=== PATIENT | female | born 1985 | race Caucasian/White ===

== ENCOUNTER → 2017-12-23 15:19 | Outpatient (CLI) | payer MEDICAID, SELFPAY ==
[2017-12-23 15:54] LABS: Abs Immature Grans 0.01 k/cumm (0.0-0.09); Absolute Basophil Count 0.01 k/cumm (0.0-0.2); Absolute Eosinophil Count 0.04 k/cumm (0.0-0.7); Absolute Monocyte Count 0.46 k/cumm (0.11-0.7); Absolute Neutrophil Count 4.96 k/cumm (1.2-6.7); Basophils % 0.2; Eosinophils % 0.6; HCT 35.7 % (36.0-46.0); HGB 12.2 g/dL (12.0-15.5); Immature Grans % 0.2; Lymphocytes % 16.7; Mean Corp. HGB Concentration 34.2 g/dL (32.0-36.0); Mean Corpuscular Hemoglobin 31.4 pg (27.0-33.0); Mean Platelet Volume 11.6 fL (8.0-11.0); Neutrophils % 75.3; Platelet Count 218 x1000/uL (130-400); RBC 3.88 m/cumm (4.00-5.20); RBC Distribution Width 12.1 % (11.7-14.6); White Blood Cell Count 6.58 k/cumm (4.4-10.8)
[2017-12-23 16:28] LABS: TSH (W/Ref FT4) 0.94 uIU/mL (0.358-3.74)
[2017-12-23 17:41] LABS: Tricyclic Antidepressants Negative (Negative)
[2017-12-23 17:44] LABS: *AMPHETAMINES SCREEN URINE Negative (Negative); *BARBITURATES SCREEN URINE Negative (Negative); *BENZODIAZEPINES SCREEN URINE Negative (Negative); Cannabinoids THC Negative (Negative); Cocaine Screen,Urine Negative (Negative); METHADONE URINE SCREEN Negative (Negative); OPIATES URINE SCREEN Negative (Negative)
[2017-12-24 09:52] LABS: Hepatitis C Ab w Rflx HCV PCR Negative (NEGAT)
[2017-12-24 10:06] LABS: HIV-1/2 Ag & Ab Screen Negative (NEGAT)
[2017-12-24 10:24] LABS: Hepatitis B Surface Ag Negative (NEGAT)
[2017-12-24 13:37] LABS: Rubella IgG Ab (UVM) Positive; Syphilis Serology (RPR) Negative (Negative)
[2017-12-27 15:05] LABS: Chlamydia Result Negative; GC Result Negative; Specimen Description CERVIX
[2017-12-30 20:43] LABS: Buprenorphine Negative; Norbuprenorphine Negative
== END ==
PROVIDERS: PCP Family Medicine; Visit Provider Midwife
DX: Z34.91 Encounter for supervision of normal pregnancy, unspecified, first trimester (principal); Z11.3 Encounter for screening for infections with a predominantly sexual mode of transmission
CPT/HCPCS: 36415; 80055; 80307; 86850; 86900; 86901; 87077; 87491; 87591; 84443; 87086

== ENCOUNTER 2017-12-29 00:52 | Outpatient (CLI) | payer MEDICAID, SELFPAY ==
--- NOTE | 2017-12-29 12:44 | DI.US_ITS ---
SYMPTOMS/DIAGNOSIS: DATING, POSITIVE TEST, Z32.01 OBSTETRICAL ULTRASOUND: Many abnormalities cannot be diagnosed. A normal exam does not exclude a congenital anomaly. Radiology No. [id number] LMP: 10/08/17? Exam Date: 12/29/2017 [facility] wks days on EDC ([facility]) 07/15/17 Confirmed: HISTORY: ---- PREDICTED GESTATIONAL AGE NUMBER 11+5 weeks with a range of 10+5 weeks to 12+5 weeks. 1 Determined by___1STUS___LMP___HISTORY PLACENTA PRESENTATION Grade Cephalic___ Anterior___Posterior___ Breech____ Right Left Transverse(head right___ Fundal___Low-lying___Previa___ Transverse(head left___ Varying BIOMETRY AMNIOTIC FLUID BPD: mm weeks Normal HC: mm weeks Oligo Polyhydramnios AC: mm weeks FL: mm weeks AMNIOTIC FLUID INDEX >26 WK CRL: 40 mm 10+6 weeks Cisterna Magna: mm CI: RUQ: LUQ Cerebellum: cm EFW: grams Percentile RLQ: LLQ Total: cms Composite AGE= 10+6 wks EDC by US: 07/21/17 BIOPHYSICAL PROFILE ANATOMY IDENTIFIED SCORE 0/2 Heart: 4-Chamber___Rate:BPM 171 LVOT: RVOT: Amniotic Fluid(>2cms)____ Stomach: Kidneys: Respirations (>30 secs) Bladder: Post. Fossa: Body Flex/Extension 3 vessel cord: Ventricles: cord insertion: Lips:____ Extremity Flex/Extension spinal morphology: Nose: Total Score= Palate: NS=not seen COMMENTS: Routine examination was performed. There is a single living intrauterine gestation. Estimated sonographic age is 10 weeks 6 days based on crown-rump length. heart rate is 171 beats per minute. The yolk sac is visualized. Both ovaries were visualized. There is normal blood flow. They are grossly unremarkable. IMPRESSION: Single living intrauterine gestation. Estimated sonographic age is 10 weeks 6 days.
== END 2017-12-29 01:12 ==
PROVIDERS: PCP Family Medicine; Visit Provider Nurse Practitioner Women's Health
DX: Z32.01 Encounter for pregnancy test, result positive (principal); Z34.81 Encounter for supervision of other normal pregnancy, first trimester
CPT/HCPCS: 76801; 76817

== ENCOUNTER 2018-02-14 00:29 | Outpatient (CLI) | payer MEDICAID, SELFPAY ==
--- NOTE | 2018-02-14 14:48 | DI.US_ITS ---
Many abnormalities cannot be diagnosed. A normal exam does not exclude a congenital anomaly. Radiology No. LMP: 10/08/17 Exam Date: 02/14/18 [facility] 11 wks 5 days on 12/29/2017 EDC ([facility]) 07/08/18 ? Confirmed: HISTORY: SURVEY ---- PREDICTED GESTATIONAL AGE NUMBER 18.2 weeks with a range of 17.2 week to 19.2 weeks. 1 Determined by___1STUS___LMP___HISTORY Info. pertaining to fetus # PLACENTA PRESENTATION Grade 0-1 Cephalic___ Anterior__X_Posterior___ Breech____ Right___X__ Left Transverse(head right___ Fundal___Low-lying___Previa___ Transverse(head left___ Varying___X___ BIOMETRY AMNIOTIC FLUID BPD: 35 mm 16.5 weeks Normal HC: 140 mm 17.3 weeks AC: 115 mm 17.2 weeks FL: 25 mm 17.3 weeks AMNIOTIC FLUID INDEX >26 WK CRL: mm weeks Cisterna Magna: 4 mm CI: 0.71 RUQ: LUQ Cerebellum: 1.7 cm EFW: 190 grams Percentile RLQ: LLQ Total: cms Composite AGE= 17.2 wks EDC by US____07/23/18 BIOPHYSICAL PROFILE ANATOMY IDENTIFIED SCORE 0/2 Heart: 4-Chamber_X__Rate:BPM_143____ LVOT: X___ RVOT: X___ Amniotic Fluid(>2cms)____ Stomach: X__ Kidneys: X__ Respirations (>30 secs) Bladder: X_ Post. Fossa:___X Body Flex/Extension 3 vessel cord:___X____Ventricles:____X cord insertion:____X_ Lips:____X Extremity Flex/Extension spinal morphology:___X Nose:X Total Score= Palate: X__ NS=not seen Comparison is made with 12/29/17. There is a single intrauterine gestation in variable position. The placenta is anterior. The biometric measurements correspond to 17 weeks 2 days which is at the lower range of normal for predicted gestational age. No abnormalities are seen. The amount of amniotic fluid appears normal. IMPRESSION: survey is within normal limits.
== END 2018-02-14 00:49 ==
PROVIDERS: PCP Family Medicine; Visit Provider Advanced Practice Midwife
DX: Z34.92 Encounter for supervision of normal pregnancy, unspecified, second trimester (principal)
CPT/HCPCS: 76805

== ENCOUNTER 2018-05-02 11:18 | Outpatient (CLI) | payer MEDICAID, SELFPAY | END 2018-05-02 11:38 | PROVIDERS: PCP Family Medicine; Visit Provider Nurse Practitioner | DX: O76 Abnormality in fetal heart rate and rhythm complicating labor and delivery (principal) | CPT/HCPCS: 59025 ==

== ENCOUNTER 2018-05-02 12:01 | Outpatient (CLI) | payer MEDICAID, SELFPAY ==
[2018-05-02 12:44] LABS: HCT 30.6 % (36.0-46.0); HGB 10.2 g/dL (12.0-15.5); Mean Corp. HGB Concentration 33.3 g/dL (32.0-36.0); Mean Corpuscular Hemoglobin 31.5 pg (27.0-33.0); Mean Corpuscular Volume 94.4 fL (80-95); Mean Platelet Volume 11.1 fL (8.0-11.0); Platelet Count 189 x1000/uL (130-400); RBC 3.24 m/cumm (4.00-5.20); RBC Distribution Width 12.2 % (11.7-14.6); White Blood Cell Count 7.53 k/cumm (4.4-10.8)
[2018-05-02 13:32] LABS: Glucose,1 Hr (Glucola) 157 mg/dL (80-140)
== END 2018-05-02 12:21 ==
PROVIDERS: Nurse Practitioner; PCP Family Medicine; Visit Provider Advanced Practice Midwife
DX: Z34.93 Encounter for supervision of normal pregnancy, unspecified, third trimester (principal)
CPT/HCPCS: 36415; 82950; 85027; 86850; 86870

== ENCOUNTER 2018-05-05 10:27 | Outpatient (CLI) | payer MEDICAID, SELFPAY ==
[2018-05-05 12:24] LABS: Glucose 1 Hour 161 mg/dL
[2018-05-05 14:37] LABS: Glucose 3 Hour 102 mg/dL
== END 2018-05-05 10:47 ==
PROVIDERS: PCP Family Medicine; Visit Provider Nurse Practitioner
DX: R73.09 Other abnormal glucose (principal); Z34.93 Encounter for supervision of normal pregnancy, unspecified, third trimester; O36.0930 Maternal care for other rhesus isoimmunization, third trimester, not applicable or unspecified
CPT/HCPCS: 36410; 36415; 82951; 86870; 86880; 86886; 86900; 86976; 86977; 86978

== ENCOUNTER 2018-06-20 14:52 | Outpatient (REF) | payer MEDICAID, SELFPAY | END 2018-06-20 15:12 | LOC: LBN 14:52 | PROVIDERS: PCP Family Medicine; Visit Provider Advanced Practice Midwife | DX: Z34.93 Encounter for supervision of normal pregnancy, unspecified, third trimester (principal); Z36.85 Encounter for antenatal screening for Streptococcus B | CPT/HCPCS: 87081 ==

== ENCOUNTER 2018-07-22 07:24 | Inpatient (IN) | payer MEDICAID, SELFPAY ==
[2018-07-22 11:53] LABS: HCT 32.5 % (36.0-46.0); HGB 10.8 g/dL (12.0-15.5); Mean Corp. HGB Concentration 33.2 g/dL (32.0-36.0); Mean Corpuscular Hemoglobin 30.7 pg (27.0-33.0); Mean Corpuscular Volume 92.3 fL (80-95); Mean Platelet Volume 12.7 fL (8.0-11.0); Platelet Count 148 x1000/uL (130-400); RBC 3.52 m/cumm (4.00-5.20); RBC Distribution Width 13.7 % (11.7-14.6); White Blood Cell Count 5.93 k/cumm (4.4-10.8)
[2018-07-22 11:59] LABS: ROM Plus Positive
[2018-07-22] MEDS: Normal Saline Flush 10 ML SYR IVP (13:28)
[2018-07-22] MEDS: Lactated Ringers 1,000 ML 125 ML IV (13:29)
[2018-07-22] MEDS: Hamamelis Leaf/Glycerin 100 EACH BOX PR (22:22)
[2018-07-23 07:20] LABS: HCT 31.1 % (36.0-46.0); HGB 10.2 g/dL (12.0-15.5); Mean Corp. HGB Concentration 32.8 g/dL (32.0-36.0); Mean Corpuscular Hemoglobin 30.3 pg (27.0-33.0); Mean Corpuscular Volume 92.3 fL (80-95); Mean Platelet Volume 12.3 fL (8.0-11.0); Platelet Count 146 x1000/uL (130-400); RBC 3.37 m/cumm (4.00-5.20); RBC Distribution Width 13.7 % (11.7-14.6); White Blood Cell Count 8.39 k/cumm (4.4-10.8)
== END 2018-07-24 12:35 | disposition home or self-care (01) | DRG 807 ==
PROVIDERS: Admitting Provider Advanced Practice Midwife; PCP Family Medicine; Visit Provider Advanced Practice Midwife
DX: O48.0 Post-term pregnancy (principal); Z37.0 Single live birth; O42.02 Full-term premature rupture of membranes, onset of labor within 24 hours of rupture; Z3A.41 41 weeks gestation of pregnancy; O99.02 Anemia complicating childbirth; D64.9 Anemia, unspecified; O75.89 Other specified complications of labor and delivery; Z67.10 Type A blood, Rh positive
CPT/HCPCS: 36415; 84112; 85027; 86850; 86900; 86901; 86920; 86870; 86902; J3490

== ENCOUNTER 2020-02-13 11:21 | Outpatient (CLI) | payer MEDICAID, SELFPAY ==
[2020-02-13 11:45] LABS: Abs Immature Grans 0.01 10^3/uL (0.0-0.06); Absolute Basophil Count 0.02 10^3/uL (0.0-0.2); Absolute Eosinophil Count 0.03 10^3/uL (0.0-0.7); Absolute Lymphocyte Count 1.14 10^3/uL (1.2-3.4); Absolute Neutrophil Count 4.78 10^3/uL (1.2-6.7); Basophils % 0.3; Eosinophils % 0.5; HCT 33.5 % (36.0-46.0); HGB 11.5 g/dL (11.2-15.7); Immature Grans % 0.2; Lymphocytes % 17.9; MCH 31.9 pg (27.0-33.0); MCHC 34.3 % (32.0-36.0); MCV 92.8 fL (80-95); MPV 11.1 fL (8.0-11.0); Monocytes % 6.3; Neutrophils % 74.8; Nucleated RBC 0 %; Platelet Count 212 10^3/uL (130-400); RBC 3.61 10^6/uL (3.93-5.22); RDW 12.9 % (11.7-14.6); RDW-SD 43.7 fL; WBC 6.38 10^3/uL (4.4-10.8)
[2020-02-14 10:21] LABS: Varicella IgG Antibody Positive (See Note)
[2020-02-14 10:23] LABS: Rubella IgG Ab (UVM) Positive (See Note)
[2020-02-14 11:23] LABS: Hepatitis B Surface Ag Negative (Negative)
[2020-02-14 11:58] LABS: HIV-1/2 Ag & Ab Screen Negative (Negative)
[2020-02-14 12:13] LABS: Hepatitis C Ab w Rflx HCV PCR Negative (Negative)
[2020-02-14 15:09] LABS: Syphilis Total Ab w/Reflex Nonreactive (Nonreactive)
== END 2020-02-13 11:41 ==
PROVIDERS: PCP Nurse Practitioner Family; Visit Provider Advanced Practice Midwife
DX: Z34.91 Encounter for supervision of normal pregnancy, unspecified, first trimester (principal)
CPT/HCPCS: 36415; 86787; 86803; 86850; 86900; 86901; 87340; 87389; 85025; 86762; 86780; 86870

== ENCOUNTER 2020-02-13 12:04 | Outpatient (REF) | payer MEDICAID, SELFPAY ==
--- NOTE | 2020-02-13 11:00 | PAPFT_PTH ---
PATIENT: Anne Husain LOC: [facility] U#:[id number] AGE/SX: 34/F ROOM: RE02/13/[address]: Gail Bullock : 1985 BED: DIS: 02/13/2020 SPEC #: [id number] RECD: 02/13/20 12:51 STATUS: DAVID REQ #: [id number] BRIANNA: 02/13/20 11:[address]: Gail Bullock [facility] Cytology RECD BY: Sommer Price ENTERED: 02/13/20 12:52 SP TYPE: PAPFT OTHR DR: Macie Godinez, MARKER MACHINE Tissues: 1 - CX/ENDOCX FOR PAP SMEARS Procedures: PAP THIN PREP/[facility] Screening HPV DNA PROBE Comments: [id number]
[2020-02-13 14:07] LABS: *AMPHETAMINES SCREEN URINE Negative (Negative); *BARBITURATES SCREEN URINE Negative (Negative); *BENZODIAZEPINES SCREEN URINE Negative (Negative); Cannabinoids THC Negative (Negative); Cocaine Screen,Urine Negative (Negative); METHADONE URINE SCREEN Negative (Negative); OPIATES URINE SCREEN Negative (Negative)
[2020-02-13 14:14] LABS: Tricyclic Antidepressants Negative (Negative)
[2020-02-14 15:37] LABS: Chlamydia Result Negative (Negative); GC Result Negative (Negative)
[2020-02-17 12:19] LABS: Buprenorphine Negative; Norbuprenorphine Negative
== END 2020-02-13 12:24 ==
LOC: LBN 12:04
PROVIDERS: PCP Nurse Practitioner Family; Visit Provider Advanced Practice Midwife
DX: Z34.91 Encounter for supervision of normal pregnancy, unspecified, first trimester (principal); N89.8 Other specified noninflammatory disorders of vagina; Z11.3 Encounter for screening for infections with a predominantly sexual mode of transmission; Z12.4 Encounter for screening for malignant neoplasm of cervix; Z11.51 Encounter for screening for human papillomavirus (HPV)
CPT/HCPCS: 80307; 87491; 87591; 88142; 87086; 87480; 87510; 87624; 87660

== ENCOUNTER 2020-03-12 09:28 | Outpatient (CLI) | payer MEDICAID, SELFPAY ==
--- NOTE | 2020-03-12 07:00 | DI.US_ITS ---
EXAM: US OB 2-3 TRIMESTER CLINICAL HISTORY: 18 wk anatomy survey,Z34.90. TECHNIQUE: Transabdominal obstetrical ultrasound performed. COMPARISON: US US OB 2-3 trimester from 02/14/2018 FINDINGS: Transabdominal obstetrical ultrasound performed. FINDINGS: Number of fetuses: One. position: Varied positioning. heart rate: 150 bpm. Placental location: Posterior. No evidence of previa. BIOMETRIC DATA: Composite Age: 18 weeks 1 day EDC: 08/12/2020 Heart Rate: 150BPM Amniotic fluid: Amount of fluid is within normal limits. ANATOMICAL SURVEY: There is a marginal cord insertion site. The umbilical cord inserts 1.4 cm from the edge of the placenta. There appear to be bilateral choroid plexus cysts. BPD: 4.1cm HC: 15.5cm AC: 12.6cm FL: 2.5cm Cisterna Magna: 3.2 mm Cerebellum: 1.83 cm Heart Rate: 150BPM IMPRESSION: 1. Single live intrauterine gestation as above. 2. anatomic survey showed bilateral choroid plexus cysts. 3. There also appears to be a marginal cord insertion site. 4. A follow-up obstetrical ultrasound is recommended for re-evaluation of the choroid plexus cysts an d the umbilical cord insertion. DATA REPOSITORY:
== END 2020-03-12 09:48 ==
PROVIDERS: PCP Nurse Practitioner Family; Visit Provider Advanced Practice Midwife
DX: Z34.92 Encounter for supervision of normal pregnancy, unspecified, second trimester (principal)
CPT/HCPCS: 76805

== ENCOUNTER 2020-05-07 02:18 | Outpatient (CLI) | payer MEDICAID, SELFPAY ==
[2020-05-07 10:23] LABS: HCT 29.5 % (36.0-46.0); HGB 10.1 g/dL (11.2-15.7); MCH 32.1 pg (27.0-33.0); MCHC 34.2 % (32.0-36.0); MCV 93.7 fL (80-95); MPV 11.6 fL (8.0-11.0); Platelet Count 165 10^3/uL (130-400); RBC 3.15 10^6/uL (3.93-5.22); RDW-SD 41.2 fL; WBC 6.59 10^3/uL (4.4-10.8)
[2020-05-07 10:30] LABS: Glucose,1 Hr (Glucola) 108 mg/dL (80-140)
== END 2020-05-07 02:38 ==
PROVIDERS: PCP Nurse Practitioner Family; Visit Provider Advanced Practice Midwife
DX: Z01.84 Encounter for antibody response examination; O36.0930 Maternal care for other rhesus isoimmunization, third trimester, not applicable or unspecified; Z3A.28 28 weeks gestation of pregnancy
CPT/HCPCS: 36415; 82950; 85027; 86870; 86880; 86886; 86900; 86905; 86976

== ENCOUNTER 2022-02-24 11:24 | Outpatient (CLI) | payer MEDICAID, SELFPAY | END 2022-02-24 11:25 | disposition home or self-care (01) | LOC: ORDER INT 11:26 | PROVIDERS: PCP Nurse Practitioner Family; Visit Provider Obstetrics & Gynecology | DX: Z34.90 Encounter for supervision of normal pregnancy, unspecified, unspecified trimester (principal) ==

== ENCOUNTER 2022-03-10 03:43 | Outpatient (CLI) | payer MEDICAID, SELFPAY ==
[2022-03-10 14:41] LABS: Abs Immature Grans 0.01 10^3/uL (0.0-0.06); Absolute Basophil Count 0.02 10^3/uL (0.0-0.2); Absolute Eosinophil Count 0.02 10^3/uL (0.0-0.7); Absolute Lymphocyte Count 1.35 10^3/uL (1.2-3.4); Absolute Neutrophil Count 4.65 10^3/uL (1.2-6.7); Basophils % 0.3; Eosinophils % 0.3; HCT 38.5 % (36.0-46.0); HGB 13.2 g/dL (11.2-15.7); Immature Grans % 0.2; Lymphocytes % 20.6; MCH 31.5 pg (27.0-33.0); MCHC 34.3 % (32.0-36.0); MCV 92 fL (80-95); MPV 10.8 fL (8.0-11.0); Monocytes % 7.6; Platelet Count 236 10^3/uL (130-400); RBC 4.19 10^6/uL (3.93-5.22); RDW 12.4 % (11.7-14.6); RDW-SD 41.1 fL; WBC 6.55 10^3/uL (4.4-10.8)
[2022-03-11 09:42] LABS: Hepatitis C Ab w Rflx HCV PCR Negative (Negative)
[2022-03-11 10:16] LABS: Hepatitis B Surface Ag Negative (Negative)
[2022-03-11 10:23] LABS: HIV-1/2 Ag & Ab Screen Negative (Negative)
[2022-03-11 11:43] LABS: Varicella IgG Antibody Positive (See Note)
[2022-03-11 11:49] LABS: Rubella IgG Ab (UVM) Positive (See Note)
[2022-03-12 15:47] LABS: Syphilis IgG w/Reflex Nonreactive (Nonreactive)
== END 2022-03-10 03:44 | disposition home or self-care (01) ==
LOC: LBO 03:44
PROVIDERS: PCP Nurse Practitioner Family; Visit Provider Advanced Practice Midwife
DX: O09.521 Supervision of elderly multigravida, first trimester (principal); Z3A.11 11 weeks gestation of pregnancy
CPT/HCPCS: 36415; 86787; 86803; 86850; 86900; 86901; 87340; 87389; 85025; 86762; 86780; 86870

== ENCOUNTER 2022-03-10 16:44 | Outpatient (REF) | payer MEDICAID, SELFPAY ==
[2022-03-10 17:45] LABS: *AMPHETAMINES SCREEN URINE Negative (Negative); *BARBITURATES SCREEN URINE Negative (Negative); *BENZODIAZEPINES SCREEN URINE Negative (Negative); Cannabinoids THC Negative (Negative); Cocaine Screen,Urine Negative (Negative); METHADONE URINE SCREEN Negative (Negative); OPIATES URINE SCREEN Negative (Negative)
[2022-03-10 17:46] LABS: Tricyclic Antidepressants Negative (Negative)
[2022-03-12 15:24] LABS: Chlamydia Result Negative (Negative); GC Result Negative (Negative)
[2022-03-20 14:33] LABS: Buprenorphine Negative ng/mL (Cutoff: 5.0); Norbuprenorphine Negative ng/mL (Cutoff: 2.5)
== END 2022-03-10 16:45 | disposition home or self-care (01) ==
LOC: LBN 16:44
PROVIDERS: PCP Nurse Practitioner Family; Visit Provider Advanced Practice Midwife
DX: Z34.91 Encounter for supervision of normal pregnancy, unspecified, first trimester (principal)
CPT/HCPCS: 80307; 80348; 87491; 87591; 87086

== ENCOUNTER 2022-03-17 03:12 | Outpatient (CLI) | payer MEDICAID, SELFPAY | END 2022-03-17 03:13 | disposition home or self-care (01) | PROVIDERS: PCP Nurse Practitioner Family; Visit Provider Advanced Practice Midwife | DX: O36.1910 Maternal care for other isoimmunization, first trimester, not applicable or unspecified (principal) | CPT/HCPCS: 36415; 86870; 86880; 86885; 86886; 86900; 86976 ==

== ENCOUNTER 2022-05-11 02:58 | Outpatient (CLI) | payer MEDICAID, SELFPAY | END 2022-05-11 02:59 | disposition home or self-care (01) | PROVIDERS: PCP Nurse Practitioner Family; Visit Provider Advanced Practice Midwife | DX: O36.0920 Maternal care for other rhesus isoimmunization, second trimester, not applicable or unspecified (principal); Z3A.20 20 weeks gestation of pregnancy | CPT/HCPCS: 36415; 86870; 86880; 86885; 86886; 86976 ==

== ENCOUNTER 2022-06-10 02:12 | Outpatient (CLI) | payer MEDICAID, SELFPAY | END 2022-06-10 02:13 | disposition home or self-care (01) | LOC: LBO 02:13 | PROVIDERS: PCP Nurse Practitioner Family; Visit Provider Advanced Practice Midwife | DX: O36.0920 Maternal care for other rhesus isoimmunization, second trimester, not applicable or unspecified (principal); Z3A.24 24 weeks gestation of pregnancy | CPT/HCPCS: 36415; 86900; 86901; 86870; 86880; 86885; 86886; 86976 ==

== ENCOUNTER 2022-06-25 03:35 | Outpatient (CLI) | payer MEDICAID, SELFPAY | END 2022-06-25 03:36 | disposition home or self-care (01) | PROVIDERS: PCP Nurse Practitioner Family; Visit Provider Advanced Practice Midwife | DX: O36.0920 Maternal care for other rhesus isoimmunization, second trimester, not applicable or unspecified (principal); O09.522 Supervision of elderly multigravida, second trimester; Z3A.27 27 weeks gestation of pregnancy | CPT/HCPCS: 36415; 86870; 86880; 86886 ==

== ENCOUNTER 2022-07-06 03:08 | Outpatient (CLI) | payer MEDICAID, SELFPAY ==
[2022-07-06 14:11] LABS: HCT 30.3 % (36.0-46.0); HGB 10.2 g/dL (11.2-15.7); MCH 31.7 pg (27.0-33.0); MCHC 33.7 % (32.0-36.0); MCV 94 fL (80-95); MPV 11.1 fL (8.0-11.0); Platelet Count 171 10^3/uL (130-400); RBC 3.22 10^6/uL (3.93-5.22); RDW 12.3 % (11.7-14.6); RDW-SD 42.5 fL; WBC 5.23 10^3/uL (4.4-10.8)
[2022-07-06 14:25] LABS: Glucose,1 Hr (Glucola) 187 mg/dL (80-140)
== END 2022-07-06 03:09 | disposition home or self-care (01) ==
LOC: LBO 03:08
PROVIDERS: PCP Nurse Practitioner Family; Visit Provider Advanced Practice Midwife
DX: Z34.93 Encounter for supervision of normal pregnancy, unspecified, third trimester (principal); Z3A.28 28 weeks gestation of pregnancy
CPT/HCPCS: 36415; 82950; 85027

== ENCOUNTER 2022-07-09 02:12 | Outpatient (CLI) | payer MEDICAID, SELFPAY | END 2022-07-09 02:13 | disposition home or self-care (01) | LOC: LBO 02:13 | PROVIDERS: PCP Nurse Practitioner Family; Visit Provider Advanced Practice Midwife | DX: Z3A.28 28 weeks gestation of pregnancy (principal); O36.0930 Maternal care for other rhesus isoimmunization, third trimester, not applicable or unspecified | CPT/HCPCS: 36415; 86870; 86880; 86885; 86886 ==

== ENCOUNTER 2022-07-17 02:32 | Outpatient (CLI) | payer MEDICAID, SELFPAY ==
[2022-07-17 13:46] LABS: Glucose 1 Hour 180 mg/dL
[2022-07-17 15:43] LABS: Glucose 3 Hour 109 mg/dL
== END 2022-07-17 02:33 | disposition home or self-care (01) ==
LOC: LBO 02:33
PROVIDERS: PCP Nurse Practitioner Family; Visit Provider Advanced Practice Midwife
DX: R73.09 Other abnormal glucose (principal)
CPT/HCPCS: 36415; 82951

== ENCOUNTER 2022-07-20 13:56 | Outpatient (CLI) | payer MEDICAID, SELFPAY | END 2022-07-20 13:57 | disposition home or self-care (01) | LOC: LBO 13:57 | PROVIDERS: PCP Nurse Practitioner Family; Visit Provider Obstetrics & Gynecology Gynecology | DX: O36.0930 Maternal care for other rhesus isoimmunization, third trimester, not applicable or unspecified (principal); O09.523 Supervision of elderly multigravida, third trimester; Z3A.30 30 weeks gestation of pregnancy | CPT/HCPCS: 36415; 86870; 86880; 86885; 86886 ==

== ENCOUNTER 2022-08-06 00:47 | Outpatient (CLI) | payer MEDICAID, SELFPAY ==
--- NOTE | 2022-08-06 10:42 | DI.US_ITS ---
Exam(s) US OB KRISTOPHER WEIGHT EXAM: US OB KRISTOPHER WEIGHT CLINICAL HISTORY: COVID in , U07.1, O98.512. TECHNIQUE: Transabdominal obstetrical ultrasound performed. COMPARISON: US POCUS EXAM from 02/24/2022 FINDINGS:: Number of fetuses: One. position: Vertex. Placental location: Anterior, grade 2-3 no evidence of previa. BIOMETRIC DATA: BPD: 84mm = 33+5 weeks, 63% HC: 309mm = 34+3 weeks, 50% AC: 301mm = 34+ 0 weeks, 80 % FL: 60 mm = 31+3 weeks, 7% EFW: 2164 Gms = 50% Composite Age: 33+3 weeks EDC: 21 Sep 2022 Heart Rate: 136BPM Amniotic fluid index: 15.3 cm. Amount of fluid is visually within normal limits. IMPRESSION: size and weight are within the expected range. DATA REPOSITORY:
== END 2022-08-06 01:07 ==
LOC: DI 00:47
PROVIDERS: PCP Nurse Practitioner Family; Visit Provider Advanced Practice Midwife
DX: O98.513 Other viral diseases complicating pregnancy, third trimester (principal); U07.1 COVID-19; Z3A.33 33 weeks gestation of pregnancy
CPT/HCPCS: 76816

== ENCOUNTER 2022-08-06 01:36 | Outpatient (CLI) | payer MEDICAID, SELFPAY | END 2022-08-06 01:37 | disposition home or self-care (01) | PROVIDERS: PCP Nurse Practitioner Family; Visit Provider Advanced Practice Midwife | DX: O36.0930 Maternal care for other rhesus isoimmunization, third trimester, not applicable or unspecified (principal); O09.523 Supervision of elderly multigravida, third trimester; Z3A.33 33 weeks gestation of pregnancy | CPT/HCPCS: 36415; 86870; 86880 ==

== ENCOUNTER 2022-08-25 04:51 | Outpatient (CLI) | payer MEDICAID, SELFPAY ==
[2022-08-25 14:23] LABS: HGB 10.3 g/dL (11.2-15.7); MCH 30.6 pg (27.0-33.0); MCHC 33.2 % (32.0-36.0); MCV 92 fL (80-95); MPV 11.2 fL (8.0-11.0); Platelet Count 165 10^3/uL (130-400); RBC 3.37 10^6/uL (3.93-5.22); RDW 13.3 % (11.7-14.6); RDW-SD 44.3 fL; WBC 7.41 10^3/uL (4.4-10.8)
== END 2022-08-25 04:52 | disposition home or self-care (01) ==
LOC: LBO 04:51
PROVIDERS: Advanced Practice Midwife; PCP Nurse Practitioner Family; Visit Provider Nurse Practitioner Family
DX: O09.523 Supervision of elderly multigravida, third trimester; Z3A.35 35 weeks gestation of pregnancy
CPT/HCPCS: 36415; 85027; 86870; 86880; 86885; 86886

== ENCOUNTER 2022-08-25 13:59 | Outpatient (REF) | payer MEDICAID, SELFPAY ==
[2022-08-25 17:34] LABS: *AMPHETAMINES SCREEN URINE Negative (Negative); *BARBITURATES SCREEN URINE Negative (Negative); *BENZODIAZEPINES SCREEN URINE Negative (Negative); Cannabinoids THC Negative (Negative); Cocaine Screen,Urine Negative (Negative); METHADONE URINE SCREEN Negative (Negative); OPIATES URINE SCREEN Negative (Negative)
[2022-08-25 17:38] LABS: Tricyclic Antidepressants Negative (Negative)
[2022-09-03 12:59] LABS: Buprenorphine Negative ng/mL (Cutoff: 5.0); Norbuprenorphine Negative ng/mL (Cutoff: 2.5)
== END 2022-08-25 14:00 | disposition home or self-care (01) ==
LOC: LBN 13:59
PROVIDERS: PCP Nurse Practitioner Family; Visit Provider Advanced Practice Midwife
DX: Z34.90 Encounter for supervision of normal pregnancy, unspecified, unspecified trimester (principal)
CPT/HCPCS: 80307; 80348; 87081

== ENCOUNTER 2022-09-04 09:33 | Outpatient (CLI) | payer MEDICAID, SELFPAY ==
[2022-09-04 10:32] VITALS: BP 114/73; PULSE 77; TEMP 36.8
[2022-09-04 10:35] VITALS: BP 114/73; PULSE 77
--- NOTE | 2022-09-04 11:46 | W.OBNST ---
Date of service: 09/04/22 Time of Service: 11:46 NST Evaluation Reason for NST Reasons for Nonstress Test: DECREASED MOVEMENT Gestational Age Gestational Age in Weeks and Days: 37 Weeks and 1Days Test and Monitor Explained Test/Monitor Explained: Test Explained, Monitor Explained and Patient Verbalized Understanding Vital Signs Blood Pressure: 114/73 Pulse: 77 Temperature: 98.2 F NST Information Date on Monitor: 09/04/22 Time on Monitor: 10:34 Date off Monitor: 09/04/22 Time off Monitor: 11:34 Total Time on Monitor: 60 NST Interventions: PO Hydration Contraction Frequency: 3 contractions NST Evaluation Patient States Movement: Present FHR Baseline: 135 Variability: Moderate 6-25 bpm Accelerations: 15x15 Decelerations: None NST Results: Reactive Note Ultrasound Done: N/A. NST Note NST Reviewed and Verified by: Shama Leon
[2022-09-04 11:47] VITALS: BP 114/73; PULSE 77; TEMP 36.8
== END 2022-09-04 11:38 | disposition home or self-care (01) ==
LOC: BCD 09:34 → OBS 10:22
PROVIDERS: PCP Nurse Practitioner Family; Visit Provider Advanced Practice Midwife
DX: O36.8131 Decreased fetal movements, third trimester, fetus 1 (principal); Z3A.37 37 weeks gestation of pregnancy
CPT/HCPCS: 59025

== ENCOUNTER 2022-09-08 02:52 | Outpatient (CLI) | payer MEDICAID, SELFPAY | END 2022-09-08 02:53 | disposition home or self-care (01) | PROVIDERS: PCP Nurse Practitioner Family; Visit Provider Advanced Practice Midwife | DX: O36.0930 Maternal care for other rhesus isoimmunization, third trimester, not applicable or unspecified (principal); Z3A.37 37 weeks gestation of pregnancy | CPT/HCPCS: 36415; 86870; 86880; 86886 ==

== ENCOUNTER 2022-12-04 02:24 | Outpatient (CLI) | payer MEDICAID, SELFPAY ==
[2022-12-04 10:17] LABS: GTT Comment See Comments
== END 2022-12-04 02:25 | disposition home or self-care (01) ==
LOC: LBO 02:24
PROVIDERS: PCP Nurse Practitioner Family; Visit Provider Advanced Practice Midwife
DX: Z39.2 Encounter for routine postpartum follow-up; Z86.32 Personal history of gestational diabetes
CPT/HCPCS: 36415; 82951

== ENCOUNTER 2025-03-13 17:52 | Outpatient (REF) | payer MEDICAID, SELFPAY ==
--- NOTE | 2025-03-13 15:00 | PAPFT_PTH ---
PATIENT: Anne Husain LOC: [facility] U#:[id number] AGE/SX: 39/F ROOM: RE03/13/[address]: Shama Leon CNM : 1985 BED: DIS: 03/13/2025 SPEC #: [id number] RECD: 03/13/25 17:54 STATUS: DAVID SINGLETON #: [id number] BRIANNA: 03/13/25 15:[address]: Shama Leon DEPT: [facility] Cytology RECD BY: Sommer Price ENTERED: 03/13/25 17:54 SP TYPE: PAPFT OTHR DR: Macie Godinez, APPRENTICE JOCKEY Tissues: 1 - CX/ENDOCX FOR PAP SMEARS Procedures: PAP THIN PREP/[facility] Screening HPV DNA PROBE Comments: [id number] (HPV 16 & 18/45)
== END 2025-03-13 17:53 | disposition home or self-care (01) ==
LOC: LBN 17:52
PROVIDERS: PCP Nurse Practitioner Family; Visit Provider Advanced Practice Midwife
DX: Z12.4 Encounter for screening for malignant neoplasm of cervix (principal)
CPT/HCPCS: 88142; 87624

== ENCOUNTER → 2025-04-04 00:09 | Outpatient (CLI) | payer MEDICAID, SELFPAY ==
--- NOTE | 2025-04-04 13:35 | DI.MAMMO_ITS ---
Exam(s) US BREAST LT COMPLETE MG MAMMO DIAGNOSTIC BI EXAM: MAMMO DIAGNOSTIC BI AND COMPLETE LEFT BREAST ULTRASOUND CLINICAL HISTORY: pea-sized lump left breast, 3 o'clock outer margin,n63.21. TECHNIQUE: BILATERAL CC AND MLO mammographic images were obtained with 3D tomosynthesis technique and utilizing computer aided detection (CAD). Additional exaggerated CC view of the left breast was performed. COMPLETE LEFT BREAST ULTRASOUND was performed including all 4 quadrants as well as the left axilla. COMPARISON: None. This is a baseline mammogram on this 39-year-old patient who feels a pea-sized left breast lump at 3 o'clock position for the past 2 months. Her sister was diagnosed with ovarian cancer at age 18. FINDINGS: DIAGNOSTIC MAMMOGRAM: The fibroglandular tissue pattern is heterogeneously dense. There are no obvious focal right breast findings. In the left breast there is an asymmetric density located laterally approximately 5-6 cm from the nipple.. There are no malignant-appearing microcalcification groups is region or elsewhere in either breast. No architectural distortion or skin thickening-retraction. COMPLETE LEFT BREAST ULTRASOUND: There is a solitary finding which is at the 3 o'clock position corresponds to her palpable finding and most probably corresponding to the finding on the mammogram. This is a wider than taller 7 x 2 mm nodule with internal echoes and slightly increased through transmission. Most probably a fibroadenoma or hemorrhagic cyst. There are no other focal findings in all 4 quadrants of the left breast. Scanning of the left axilla is negative for adenopathy. IMPRESSION: At the 3 o'clock position of the left breast there is a 7 x 2 mm nodule with internal echoes as described above, either hemorrhagic cyst or fibroadenoma. Less likely malignancy. Patient is concerned because of the history of ovarian cancer in her sister at age 18. Appropriate follow-up is ultrasound-guided core biopsy. The patient was informed of the findings and follow-up recommendations by myself prior to leaving the department today. Report and recommendations called by myself to provider Gail Bullock 04/04/2025 at 3:45 p.m. BI-RADS Category 4 - Suspicious Abnormality: Biopsy should be considered Breast Density - Category C - The breast are heterogeneously dense, which may obscure small masses. Breast density Category C or D implies that the patient has dense breast tissue. Dense breast tissue can make it harder to find cancer on a mammogram. Dense breast tissue is also associated with an increased risk of breast cancer. This information about the result of the mammogram report was provided to the patient to raise their awareness. Use this report when you speak with the patient about their risks for breast cancer, which includes their family history. At that time, you may recommend additional screening tests (Ultrasound or MRI) as these tests may add significant information. A negative radiographic report should not delay biopsy if a dominant or clinically suspicious mass is present. Up to ten percent of cancers are not identified on mammography. A negative report may reinforce clinical impression. Adenosis and dense breasts may obscure an underlying neoplasm. False positive reports average 6 to 10%. Patient will receive a letter notifying them of these results.
== END ==
LOC: DI 00:09
PROVIDERS: PCP Nurse Practitioner Family; Visit Provider Advanced Practice Midwife
DX: N63.21 Unspecified lump in the left breast, upper outer quadrant (principal); R92.333 Mammographic heterogeneous density, bilateral breasts; Z80.41 Family history of malignant neoplasm of ovary
CPT/HCPCS: 76642; 77062; 77066; G0279